=== PATIENT | female | born 1935 | race American Indian/Alaskan Native ===

== ENCOUNTER 2017-05-22 06:40 | Day surgery (SDC) | payer MEDICARE ==
[2017-05-22] MEDS ORDERED: NACL 0.9% 500 ML 500 ML IV SCH (07:00)
[2017-05-22 07:40] LABS: Basophils % (Auto) 0.4 % (0.0-1.8); Eosinophils # (Auto) 0.5 K/mm3 (0.0-0.4); Eosinophils % (Auto) 4.4 % (0.0-4.3); Hematocrit 40.6 % (30.3-42.9); Hemoglobin 13.7 gm/dl (10.1-14.3); Lymphocytes # (Auto) 1.9 K/mm3 (1.2-5.4); Lymphocytes % (Auto) 18.7 % (13.4-35.0); Mean Corpuscular HGB Conc 34 % (30-34); Mean Corpuscular Hemoglobin 29 pg (28-32); Mean Corpuscular Volume 85 fl (79-97); Monocytes # (Auto) 0.5 K/mm3 (0.0-0.8); Monocytes % (Auto) 5.1 % (0.0-7.3); Platelet Count 324 K/mm3 (140-440); Red Blood Count 4.76 M/mm3 (3.65-5.03); Red Cell Distribution Width 14.8 % (13.2-15.2)
[2017-05-22 07:50] LABS: INR 0.88 (0.87-1.13)
[2017-05-22 08:42] LABS: BUN/Creatinine Ratio 30; Blood Urea Nitrogen 24 mg/dL (7-17); Calcium 9.9 mg/dL (8.4-10.2); Hemolysis Index 5
[2017-05-22] MEDS ORDERED: HEPARIN 10,000 UNITS/10 ML ONE (09:20)
[2017-05-22] MEDS ORDERED: NITROGLYCERIN SYRINGE 0 ML ONE (09:21)
[2017-05-22] MEDS: HEPARIN/NS 5000 UNIT/500ML(CATH LAB) 1,000 ML IR ONE ×2 (09:48→10:00)
[2017-05-22] MEDS: SUBLIMAZE ONE ×2 (09:48→10:06)
[2017-05-22] MEDS: VERSED ONE ×2 (09:48→10:06)
[2017-05-22] MEDS: XYLOCAINE 2% INFILTRATI ONE ×2 (09:48→10:06)
--- NOTE | 2017-05-22 10:36 | Discharge Summary ---
Short Stay Discharge Plan Activity: advance as tolerated Weight Bearing Status: Partial Weight Bearing Diet: low fat, low cholesterol, low salt, diabetic Wound: keep clean and dry Special Instructions: no heavy lifting (3 days), hold Metformin (48hrs only) Additional Instructions: HOLD METFORMIN FOR 2 DAYS ONLY Follow up with: BOOGIE ORDONEZ MD [Primary Care Provider] - 7 Days MICHAEL LOVELACE MD [Staff Physician] - 7 Days
--- NOTE | 2017-05-22 10:38 | Cardiac Catherization Report ---
CARDIAC CATHETERIZATION REASON FOR PROCEDURE: The patient is an 81-year-old woman with coronary artery disease, who suffered a previous anterior myocardial infarction followed by coronary stent placement to the mid LAD. A recent Persantine thallium stress test was abnormal, demonstrating a new large inferior defect. This prompted a recommendation for cardiac catheterization. PROCEDURES PERFORMED: 1. Left heart catheterization. 2. Left and right coronary angiography. 3. Left ventricular angiography. The patient was prepped and draped in a sterile fashion after informed consent. The right femoral artery was entered using Seldinger technique followed by placement of a 6-Welsh sheath. Selective left and right coronary angiography was performed using #4 right and left Hawa catheters. A pigtail catheter was used for left ventricle angiography. The catheters were removed, sheath removed. Hemostasis achieved using manual compression. The patient was returned to the postprocedure unit in stable condition. There were no complications. FINDINGS: HEMODYNAMICS: Left ventricle end diastolic pressure was 14. Ascending aortic pressure 134/65. There was no significant pressure gradient on pullback across the aortic valve. CORONARY ANGIOGRAPHY: The left main coronary artery was free of significant disease. A stent was visible in the mid LAD. The stented segment was widely patent, with very mild in-stent restenosis. Otherwise, mild luminal irregularities were noted through the mid LAD. The circumflex system was a large system that trifurcated in its mid segment into three medium to large terminal obtuse marginal branches. The superior sub-branch contained a moderate ostial narrowing, otherwise the circumflex system was free of significant disease. The right coronary artery was dominant. This vessel contained diffuse mild atherosclerosis of the entire mid segment. No severe obstructive lesions were noted. The left ventricle was normal in size, there was normal left ventricular systolic function, ejection fraction greater than 60%. No significant regional wall motion abnormalities were detected in the [place] projection. CONCLUSION: 1. Widely patent mid LAD stent. 2. Otherwise, mild to moderate nonobstructive irregularities as described above. 3. Normal left ventricular systolic function, ejection fraction greater than 60%. RECOMMENDATION: Risk factor modification and medical therapy. JOB# [id number] CA/NTS
[2017-05-22] MEDS ORDERED: NACL 0.9% 1000 ML 1,000 ML IV SCH (11:00)
[2017-05-22 16:16] VITALS: BP 108/61
== END 2017-05-22 16:10 | disposition home or self-care (01) ==
LOC: CATHLABREC 06:40
PROVIDERS: ATTEND Internal Medicine Cardiovascular Disease
DX: I25.10 Atherosclerotic heart disease of native coronary artery without angina pectoris (principal); I25.5 Ischemic cardiomyopathy; I25.2 Old myocardial infarction; I42.9 Cardiomyopathy, unspecified; E11.9 Type 2 diabetes mellitus without complications; M19.90 Unspecified osteoarthritis, unspecified site; F32.9 Major depressive disorder, single episode, unspecified; E78.5 Hyperlipidemia, unspecified; F17.290 Nicotine dependence, other tobacco product, uncomplicated; Z79.84 Long term (current) use of oral hypoglycemic drugs; Z79.899 Other long term (current) drug therapy; Z95.5 Presence of coronary angioplasty implant and graft; Z79.82 Long term (current) use of aspirin; Z79.01 Long term (current) use of anticoagulants
CPT/HCPCS: 36415; 80048; 85025; 85610; 85730; 93005; 93010; 93458; J1644; J2250; J3010; J7040; Q9967